=== PATIENT | male | born 1960 | race Caucasian/White ===

== ENCOUNTER 2019-03-16 16:33 | Emergency (ER) | payer OTHER ==
[2019-03-16] MEDS: IBUPROFEN 600 MG TAB PO (17:20)
== END 2019-03-16 18:30 | disposition home or self-care (01) ==
LOC: FTE 16:33
DX: S13.9XXA Sprain of joints and ligaments of unspecified parts of neck, initial encounter (principal); V49.50XA Passenger injured in collision with unspecified motor vehicles in traffic accident, initial encounter; Y92.9 Unspecified place or not applicable
CPT/HCPCS: 72040; 99283-25